=== PATIENT | male | born 1960 | race Caucasian/White ===

== ENCOUNTER → 2021-07-17 | Outpatient (CLI) | payer OTHER ==
[~2021-07-17] MED LIST: ACCUNEB SO1.25 MG/1 INH; ACYCLOVIR 400400 MG PO; ADVAIR 100-501 EACH INH; ADVAIRDISKUS INH; ALBUTEROL INH INH; ANDROGEL2.5 GM TOP; BACTRIM DS TAB1 EACH PO; CEFDINIR300 MG PO; DEPO-TESTO200 MG/1 M IM; FISHOIL PO; IBUPROFEN 800800 M1 PO; MULTIVITAMINS PO; PROAIR HFA8.5 GM INH; TESTIM5 GM TOP; VITAMIN B COMP1 EAC7 PO; VOLTAREN 50MG T50 MG PO; ZOLOFT25 MG PO; ZPAK PO
== END ==
LOC: CAT 08:48
PROVIDERS: ATTEND Family Medicine
DX: Z13.6 Encounter for screening for cardiovascular disorders (principal)